=== PATIENT | female | born 1960 | race African-American/Black ===

== ENCOUNTER 2017-11-16 20:11 | Emergency (ER) | payer BC ==
[2017-11-16] MEDS ORDERED: TRAMADOL HCL 50 MG TAB ONE (22:01)
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
--- NOTE | 2017-11-17 07:17 | EKG ---
Test Date: 2017-11-16 Test Time: 22:44:27 [place]: REID MEASUREMENT RESULTS: Intervals: Rate: 66 NJ: 174 QRSD: 84 QT: 410 QTc: 429 [place]: P: 75 NJ: 174 QRS: 62 T: 42 INTERPRETIVE STATEMENTS: Normal sinus rhythm Normal ECG Compared to ECG 08/09/2014 10:25:25 Sinus bradycardia no longer present Electronically Signed On 11-17-17 07:15:54 CDT by Gary Lubin
== END 2017-11-17 00:22 | disposition home or self-care (01) ==
LOC: ER 20:11
DX: S16.1XXA Strain of muscle, fascia and tendon at neck level, initial encounter (principal); S29.012A Strain of muscle and tendon of back wall of thorax, initial encounter; V49.40XA Driver injured in collision with unspecified motor vehicles in traffic accident, initial encounter
CPT/HCPCS: 70450; 71250; 72040; 72125; 93005; 99284